=== PATIENT | female | born 1985 ===

== ENCOUNTER → 2016-10-21 | Outpatient (CLI) | payer OTHER ==
[2016-10-21 16:57] LABS: ALBUMIN 3.4 gm/dL (3.5-5.0); CALCIUM 8.7 mg/dL (8.4-10.2); PHOSPHOROUS 3.5 mg/dL (2.5-4.5)
[2016-10-21 16:57] LABS: ALBUMIN 3.7 gm/dL (3.5-5.0); CALCIUM 8.5 mg/dL (8.4-10.2); PHOSPHOROUS 3.4 mg/dL (2.5-4.5)
== END ==
LOC: ZCOL.LAB 16:36
PROVIDERS: Otolaryngology
DX: Z01.89 Encounter for other specified special examinations (principal)

== ENCOUNTER → 2016-10-22 | Outpatient (REF) ==
[2016-10-22 06:34] LABS: ALBUMIN 3.6 gm/dL (3.5-5.0); CALCIUM 7.7 mg/dL (8.4-10.2); PHOSPHOROUS 4.1 mg/dL (2.5-4.5)
== END ==
LOC: ZMSC 06:03
PROVIDERS: Otolaryngology
DX: Z01.89 Encounter for other specified special examinations (principal)

== ENCOUNTER → 2016-10-22 | Outpatient (CLI) | payer OTHER ==
[2016-10-22 14:27] LABS: ALBUMIN 3.3 gm/dL (3.5-5.0); CALCIUM 7.9 mg/dL (8.4-10.2); PHOSPHOROUS 4.3 mg/dL (2.5-4.5)
== END ==
LOC: ZCOL.LAB 14:13
PROVIDERS: Otolaryngology
DX: Z01.89 Encounter for other specified special examinations (principal)